=== PATIENT | female | born 1940 | race African-American/Black ===

== ENCOUNTER → 2016-10-18 19:39 | Outpatient (CLI) | payer MEDICARE, MEDICAID ==
[2016-06-25 11:03] VITALS: BMI 42.7
[~2016-10-18 19:39] MED LIST: ASPIRIN325 MG PO; BETAPACE 80 MG80 MG PO; CARDIZEM SR60 MG PO; COLACE100 MG PO; DIAMOX250 MG PO; GLUCOTROL 5 MG T5 MG PO; HYDROCODON-ACE1 EAC7 PO; NITROSTAT0.4 MG SL; PREDNISONE10 MG PO; PRINIVIL20 MG PO; PROVENTIL/2.5 MG/3 M INH; PULMICORT0.5 MG/21 UPD; SINGULAIR10 MG PO; SPIRIVA18 MCG INH; VALIUM5 MG PO
[2016-10-18 20:33] LABS: AMYLASE - SERUM 82 U/L (25-115); LIPASE 211 U/L (73-393)
== END | disposition home or self-care (01) ==
LOC: D.LABREF 19:39
PROVIDERS: Family Medicine
DX: R10.12 Left upper quadrant pain (principal)

== ENCOUNTER 2016-12-01 15:13 | Inpatient (IN) | payer MEDICARE, MEDICAID ==
[~2016-12-01] VITALS: Ht 167.6 cm; Wt 104.6 kg
--- NOTE | ~2016-12-01 | CN ---
PATIENT NAME:EN HELM MEDICAL RECORD: [id number] : 38 LOCATION:D.M2 D.2133 ADMIT DATE: 12/01/16 ACCOUNT: [id number] CONSULTING PHYSICIAN: YARELY NEW MD REFERRING PHYSICIAN: BERNARDINO MARTINEZ DO DATE OF CONSULTATION: 12/06/2016 Consult is from Bernardino Martinez. Consult is to ENT. REASON FOR THE CONSULTATION: Neck mass. HISTORY OF PRESENT ILLNESS: Mrs. Helm was admitted to the hospital with COPD exacerbation, atrial fibrillation, dehydration, and she was found on workup to have a neck mass that is what I was called here about. She complains of some difficulty swallowing. Sometimes when I was in the room, the nurse had her take some pills and she was able to swallow them, but had to take an extra sip of water to swallow. She does not complain of any dyspnea or shortness of breath. She does have a nasal oxygen on. She really does not have any complaints related to the mass in her neck, it seems like it was more incidentally found. She does not have any pain, limitation in movement or foreign body sensation in her throat, anything like that. Her past medical history, I mostly got off of the chart, H and P and pulmonary note. PHYSICAL EXAMINATION: GENERAL: On physical exam, she was asleep when I got there, but the nurse had woken her up to take her medicines. She was awake. She was alert. She seems to be just a fair historian, would not go into much detail about things, but seemed to answer pretty clearly, seemed oriented and certainly did not have any problem with her voice. She did not have any stridor, not in any distress. She was wearing nasal oxygen. HEENT: Her eyes, sclerae, and conjunctivae are normal. Extraocular movements are intact. No ptosis. The nose has no mass, polyps or drainage. Oral cavity and oropharynx: She has a tongue, which is in the midline. Pharynx looks normal. She does have a large tongue. Hard to examine the lower oropharynx. NECK: She has got a right-sided neck mass. It is medial to the sternocleidomastoid. It is mid-neck and lower. It does raise when she swallows, that is certainly consistent with a right-sided thyroid mass. It is nontender. I cannot palpate any other masses or adenopathy. Palpation and movement of that certainly does not affect her. She can still swallow and it raises up, moved her trachea and larynx [id number]. It does not really seem to give her any problems airway del valle or discomfort. IMAGING STUDIES: I looked at her CT and she does have a right-sided neck mass. It is displacing the airway laterally to the left side and then displacing the carotid sheath laterally to the right side and seems like it is attached to the thyroid. 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 It does not seem to be causing any airway issues for her, although the scan looks like it could possibly. It could be related to some of her dysphagia symptoms; however, she passed a video swallow, but I could see it certainly gives her the feeling that it is a little bit hard to get things down, but she is doing okay with her swallowing right now. I talked to her about that and wanted to examine her nasopharynx And her larynx with a flexible scope. I brought it over and was going to spray her nose and take a look and she refused. I asked her if she CONSULT REPORT [id number] EN HELM wanted me to help and she said that yes, she wanted me to help her, but that is not helping. I went over everything with her and told her we really need to take a look and see about her airway. Her vocal cord status, et cetera, even though her voice seems normal, but she just would not let me. It did not seem like she was unable to understand. On a significant amount of time with her, tried to talk her about the fact that it would not to be too uncomfortable, but she would not even let me spray her nose or even think about looking in there at all. PLAN: It is going to be difficult to decide what to do. I think she does need to needle biopsy this. That can be done by radiology certainly. Normally, I can do that in the office, but not here in the hospital, but that can be done. She does seem to be swallowing okay for now. She is on oxygen, so I think her COPD and pulmonary disease is an issue. I am not sure what further I can do at this point if she will not let me examine her. TRANSINT:[id number] Voice Confirmation ID: [id number] DOCUMENT ID: [id number] YARELY NEW MD CC: BERNARDINO MARTINEZ DO [id number] DICTATION DATE: 12/06/16 1133 NUCLEAR WEAPONS MECHANICAL SPECIALIST: 12/06/16 1528 ADM IN [place] [id number] [place] [id number]
[2016-12-01 15:52] LABS: BASOPHILS 0.3 % (0.0-2.0); EOSINOPHILS 1.2 % (0-7); HEMATOCRIT 35.6 % (36.0-48.0); HEMOGLOBIN 10.8 g/dL (12-16); IMMATURE GRANULOCYTES 0.1 % (0-5); LYMPHOCYTES 18.6 % (15-50); MCH 24.1 pg (26.0-34.0); MCHC 30.3 g/dL (31.0-37.0); MCV 79.5 fL (80.0-100.0); MONOCYTES 9.8 % (2-11); RBC 4.48 10x6/uL (4.00-5.40); RDW 16.9 % (11.5-14.5); WBC 6.7 10x3/uL (4.8-10.8)
[2016-12-01 16:20] LABS: PLATELET COUNT 165 10x3/uL (130-400)
[2016-12-01 16:32] LABS: ALBUMIN 3.7 g/dL (3.4-5.0); ANION GAP 8.2 mmol/L (8-16); BILIRUBIN - TOTAL 0.5 mg/dL (0.2-1.3); CARBON DIOXIDE 36.5 mmol/L (21.0-32.0); CREATININE - SERUM 0.8 mg/dL (0.6-1.3); POTASSIUM - SERUM 4.7 mmol/L (3.5-5.1); PROTEIN - SERUM 7.1 g/dL (6.4-8.2)
[2016-12-01 16:44] LABS: CKMB 0.9 U/L (0.0-3.6); CREATINE KINASE 54 UL (21-215)
[2016-12-01] MEDS ORDERED: HYDROCODON-ACE1 EAC7 PO (17:15)
[2016-12-01 18:06] VITALS: BP 140/105
[2016-12-01 18:36] VITALS: BP 140/105; BMI 38.5
[2016-12-01 20:00] VITALS: BP 139/91
[2016-12-01 21:50] LABS: CREATINE KINASE 67 UL (21-215); TROPONIN-I 0.034 ng/mL (0.000-0.060)
[2016-12-02] VITALS: BP 146/104
[2016-12-02 04:00] VITALS: BP 132/100
[2016-12-02 04:11] LABS: BASOPHILS 0.1 % (0.0-2.0); EOSINOPHILS 1.8 % (0-7); HEMATOCRIT 35.6 % (36.0-48.0); HEMOGLOBIN 10.5 g/dL (12-16); IMMATURE GRANULOCYTES 0.1 % (0-5); LYMPHOCYTES 17.9 % (15-50); MCH 23.9 pg (26.0-34.0); MCHC 29.5 g/dL (31.0-37.0); MCV 80.9 fL (80.0-100.0); MEAN PLATELET VOLUME 11.4 fL (7.4-10.4); MONOCYTES 13.4 % (2-11); NEUTROPHILS 66.7 % (40-80); PLATELET COUNT 182 10x3/uL (130-400); WBC 6.8 10x3/uL (4.8-10.8)
[2016-12-02 05:01] LABS: ALBUMIN 2.9 g/dL (3.4-5.0); ALKALINE PHOSPHATASE 43 U/L (46-116); ALT (SGPT) 16 U/L (10-68); BILIRUBIN - TOTAL 0.41 mg/dL (0.2-1.3); CALC OSMOLALITY 287 mosm/kg (275-300); CALCIUM 7.2 mg/dL (8.5-10.1); CARBON DIOXIDE 31.8 mmol/L (21.0-32.0); CHLORIDE - SERUM 108 mmol/L (98-107); CKMB 0.8 U/L (0.0-3.6); CREATINE KINASE 44 UL (21-215); CREATININE - SERUM 0.8 mg/dL (0.6-1.3); GLUCOSE 94 mg/dL (74-106); MAGNESIUM - SERUM 1.5 mg/dL (1.8-2.4); PHOSPHOROUS 3.9 mg/dL (2.5-4.9); PRO BNP 4361 pg/mL (0-450); PROTEIN - SERUM 6.2 g/dL (6.4-8.2); SODIUM 145 mmol/L (136-145); TROPONIN-I 0.044 ng/mL (0.000-0.060); UREA NITROGEN 11 mg/dL (7-18); eGFR NON AFRICAN AMERICAN 74 mL/min (90-120)
[2016-12-02 07:25] VITALS: BP 162/90
[2016-12-02 12:54] VITALS: BP 159/111
[2016-12-02 14:03] VITALS: Ht 167.6 cm; Wt 104.6 kg
[2016-12-02 16:19] VITALS: BP 140/89
[2016-12-02 20:00] VITALS: BP 158/110
[2016-12-03 02:00] VITALS: BP 147/96
[2016-12-03 07:31] VITALS: BP 133/91
[2016-12-03 07:54] LABS: MAGNESIUM - SERUM 1.8 mg/dL (1.8-2.4); PHOSPHOROUS 4.6 mg/dL (2.5-4.9)
[2016-12-03 08:07] LABS: ALBUMIN 3.4 g/dL (3.4-5.0); ANION GAP 7.2 mmol/L (8-16); BILIRUBIN - TOTAL 0.56 mg/dL (0.2-1.3); CALCIUM 8.6 mg/dL (8.5-10.1); CARBON DIOXIDE 36.8 mmol/L (21.0-32.0); CREATININE - SERUM 0.9 mg/dL (0.6-1.3); PROTEIN - SERUM 6.8 g/dL (6.4-8.2)
[2016-12-03 08:27] LABS: BASOPHILS 0.2 % (0.0-2.0); EOSINOPHILS 0 % (0-7); HEMATOCRIT 34.8 % (36.0-48.0); HEMOGLOBIN 10.1 g/dL (12-16); IMMATURE GRANULOCYTES 0.3 % (0-5); LYMPHOCYTES 13.3 % (15-50); MCH 23.9 pg (26.0-34.0); MCV 82.3 fL (80.0-100.0); MEAN PLATELET VOLUME 11.8 fL (7.4-10.4); MONOCYTES 7.1 % (2-11); NEUTROPHILS 79.1 % (40-80); PLATELET COUNT 170 10x3/uL (130-400); RBC 4.23 10x6/uL (4.00-5.40); WBC 6.5 10x3/uL (4.8-10.8)
[2016-12-03 12:52] VITALS: BP 145/87
[2016-12-03 16:12] VITALS: BP 113/74
[2016-12-03 20:23] VITALS: BP 124/75
[2016-12-04 00:07] VITALS: BP 127/82
[2016-12-04 04:26] VITALS: BP 138/91
[2016-12-04 04:59] LABS: BASOPHILS 0.3 % (0-2); EOSINOPHILS 0.1 % (0-7); HEMATOCRIT 35.6 % (36.0-48.0); HEMOGLOBIN 10.4 g/dL (12-16); IMMATURE GRANULOCYTES 0.1 % (0-5); LYMPHOCYTES 11.7 % (15-50); MCHC 29.2 g/dL (31.0-37.0); MCV 82.2 fL (80.0-100.0); MEAN PLATELET VOLUME 11.4 fL (7.4-10.4); MONOCYTES 13.5 % (2-11); NEUTROPHILS 74.3 % (40-80); PLATELET COUNT 157 10x3/uL (130-400); RBC 4.33 10x6/uL (4.00-5.40); RDW 16.8 % (11.5-14.5); WBC 7.5 10x3/uL (4.8-10.8)
[2016-12-04 05:20] LABS: ALBUMIN 3.2 g/dL (3.4-5.0); ANION GAP 8.4 mmol/L (8-16); BILIRUBIN - TOTAL 0.59 mg/dL (0.2-1.3); CARBON DIOXIDE 34.7 mmol/L (21.0-32.0); CREATININE - SERUM 1.1 mg/dL (0.6-1.3); MAGNESIUM - SERUM 1.7 mg/dL (1.8-2.4); PHOSPHOROUS 4.1 mg/dL (2.5-4.9); POTASSIUM - SERUM 5.1 mmol/L (3.5-5.1); PROTEIN - SERUM 6.7 g/dL (6.4-8.2)
[2016-12-04 08:12] VITALS: BP 144/93
[2016-12-04 12:46] VITALS: BP 153/106
[2016-12-04 15:46] VITALS: BP 144/102
[2016-12-04 20:07] VITALS: BP 131/83
[2016-12-05] VITALS (7 sets, daily range): BP systolic 126–150; BP diastolic 76–105
[2016-12-05 04:35] LABS: BASOPHILS 0.3 % (0-2); EOSINOPHILS 0 % (0-7); HEMATOCRIT 36.6 % (36.0-48.0); HEMOGLOBIN 10.7 g/dL (12-16); IMMATURE GRANULOCYTES 0.3 % (0-5); LYMPHOCYTES 14.3 % (15-50); MCH 24.3 pg (26.0-34.0); MCHC 29.2 g/dL (31.0-37.0); MEAN PLATELET VOLUME 11.8 fL (7.4-10.4); MONOCYTES 15.9 % (2-11); NEUTROPHILS 69.2 % (40-80); PLATELET COUNT 163 10x3/uL (130-400); RBC 4.41 10x6/uL (4.00-5.40); RDW 16.7 % (11.5-14.5); WBC 6.7 10x3/uL (4.8-10.8)
[2016-12-05 04:46] LABS: ALBUMIN 3.3 g/dL (3.4-5.0); ANION GAP 6.3 mmol/L (8-16); BILIRUBIN - TOTAL 0.5 mg/dL (0.2-1.3); CALCIUM 8.8 mg/dL (8.5-10.1); CARBON DIOXIDE 37.6 mmol/L (21.0-32.0); CREATININE - SERUM 1.1 mg/dL (0.6-1.3); MAGNESIUM - SERUM 1.8 mg/dL (1.8-2.4); PHOSPHOROUS 4.3 mg/dL (2.5-4.9); POTASSIUM - SERUM 4.9 mmol/L (3.5-5.1); PROTEIN - SERUM 6.9 g/dL (6.4-8.2)
[2016-12-06 03:41] VITALS: BP 153/116
[2016-12-06 05:01] LABS: BASOPHILS 0.1 % (0-2); EOSINOPHILS 0.1 % (0-7); HEMATOCRIT 37.6 % (36.0-48.0); HEMOGLOBIN 10.9 g/dL (12-16); IMMATURE GRANULOCYTES 0.1 % (0-5); LYMPHOCYTES 14.6 % (15-50); MCV 82.6 fL (80.0-100.0); MEAN PLATELET VOLUME 12.5 fL (7.4-10.4); NEUTROPHILS 70.1 % (40-80); PLATELET COUNT 170 10x3/uL (130-400); RBC 4.55 10x6/uL (4.00-5.40); RDW 16.4 % (11.5-14.5); WBC 6.8 10x3/uL (4.8-10.8)
[2016-12-06 05:18] VITALS: BP 158/100
[2016-12-06 05:20] LABS: ALBUMIN 3.2 g/dL (3.4-5.0); ANION GAP 5.9 mmol/L (8-16); BILIRUBIN - TOTAL 0.68 mg/dL (0.2-1.3); CARBON DIOXIDE 39.4 mmol/L (21.0-32.0); CREATININE - SERUM 0.9 mg/dL (0.6-1.3); POTASSIUM - SERUM 4.3 mmol/L (3.5-5.1); PROTEIN - SERUM 6.9 g/dL (6.4-8.2)
[2016-12-06 07:44] VITALS: BP 154/95
[2016-12-06 12:19] VITALS: BP 166/106
[2016-12-06 15:51] VITALS: BP 165/116
[2016-12-06 19:49] LABS: ALBUMIN 3.2 g/dL (3.4-5.0); ANION GAP 2.2 mmol/L (8-16); BILIRUBIN - TOTAL 0.63 mg/dL (0.2-1.3); CALCIUM 8.7 mg/dL (8.5-10.1); CREATININE - SERUM 0.9 mg/dL (0.6-1.3); MAGNESIUM - SERUM 1.5 mg/dL (1.8-2.4); PROTEIN - SERUM 6.9 g/dL (6.4-8.2); T4 THYROXINE 5.8 ug/dL (4.7-13.3); THYROID STIMULATING HORMONE 0.38 uIU/mL (0.36-3.74)
[2016-12-06 19:56] LABS: CARBON DIOXIDE 46.8 mmol/L (21.0-32.0)
[2016-12-06 23:50] VITALS: BP 158/109
[2016-12-07] VITALS (12 sets, daily range): BP systolic 124–177; BP diastolic 78–118
[2016-12-07 05:34] LABS: BASOPHILS 0.2 % (0-2); EOSINOPHILS 0 % (0-7); HEMATOCRIT 37.8 % (36.0-48.0); LYMPHOCYTES 15.1 % (15-50); MCH 24.2 pg (26.0-34.0); MCHC 29.1 g/dL (31.0-37.0); MCV 83.1 fL (80.0-100.0); MONOCYTES 15.1 % (2-11); NEUTROPHILS 69.6 % (40-80); PLATELET COUNT 151 10x3/uL (130-400); RBC 4.55 10x6/uL (4.00-5.40); RDW 16.2 % (11.5-14.5); WBC 6.5 10x3/uL (4.8-10.8)
[2016-12-07 06:11] LABS: BILIRUBIN - TOTAL 0.7 mg/dL (0.2-1.3); CALCIUM 8.7 mg/dL (8.5-10.1); CREATININE - SERUM 0.8 mg/dL (0.6-1.3); POTASSIUM - SERUM 3.9 mmol/L (3.5-5.1); PROTEIN - SERUM 6.5 g/dL (6.4-8.2)
[2016-12-07 06:21] LABS: ANION GAP 8.9 mmol/L (8-16)
[2016-12-08] VITALS (24 sets, daily range): BP systolic 99–156; BP diastolic 72–109
[2016-12-08 04:15] LABS: BASOPHILS 0.1 % (0-2); EOSINOPHILS 0.4 % (0-7); HEMATOCRIT 38.8 % (36.0-48.0); HEMOGLOBIN 11.8 g/dL (12-16); IMMATURE GRANULOCYTES 0.3 % (0-5); LYMPHOCYTES 14.1 % (15-50); MCH 24.8 pg (26.0-34.0); MCHC 30.4 g/dL (31.0-37.0); MCV 81.7 fL (80.0-100.0); MONOCYTES 12.9 % (2-11); NEUTROPHILS 72.2 % (40-80); PLATELET COUNT 156 10x3/uL (130-400); RBC 4.75 10x6/uL (4.00-5.40); RDW 15.7 % (11.5-14.5); WBC 6.7 10x3/uL (4.8-10.8)
[2016-12-08 04:27] LABS: APTT 29.5 SECONDS (22.8-39.4); INR 1.24 (0.85-1.17); PROTIME 15.5 SECONDS (11.6-15.0)
[2016-12-08 04:54] LABS: ALBUMIN 2.9 g/dL (3.4-5.0); ALKALINE PHOSPHATASE 41 U/L (46-116); ALT (SGPT) 15 U/L (10-68); BILIRUBIN - TOTAL 1.28 mg/dL (0.2-1.3); CALC OSMOLALITY 281 mosm/kg (275-300); CHLORIDE - SERUM 98 mmol/L (98-107); CKMB 0.3 U/L (0.0-3.6); CREATININE - SERUM 0.9 mg/dL (0.6-1.3); GLUCOSE 100 mg/dL (74-106); PRO BNP 7257 pg/mL (0-450); PROTEIN - SERUM 6.3 g/dL (6.4-8.2); SODIUM 141 mmol/L (136-145); T4 THYROXIN - FREE 1.32 ng/dL (0.76-1.46); THYROID STIMULATING HORMONE 1.32 uIU/mL (0.36-3.74); TROPONIN-I 0.035 ng/mL (0.000-0.060); UREA NITROGEN 16 mg/dL (7-18); eGFR NON AFRICAN AMERICAN 64 mL/min (90-120)
[2016-12-08 04:55] LABS: POTASSIUM - SERUM 2.8 mmol/L (3.5-5.1)
--- NOTE | 2016-12-08 12:49 | EC ---
PATIENT:EN HELM DATE OF SERVICE: 12/01/16 SEX: F MEDICAL RECORD: [id number] DATE OF : 38 LOCATION:[facility] AGE OF PATIENT: 76 ADMISSION DATE: 12/01/16 REFERRING PHYSICIAN: INTERPRETING PHYSICIAN: CHRISTIANE NEGRO M.D. ECHOCARDIOGRAM REPORT ECHO CHARGES 4 ECHO COMPLETE CLINICAL DIAGNOSIS: CARDIOMEGALY/SOB ECHOCARDIOGRAPHIC MEASUREMENTS (adult normal given) AC root (d.<3.7cm) 3.1 LV Septum d (<1.2 cm> 1.5 Valve Excursion 1.6 LV Septum (systole) 2.0 Left Atria (s.<4.0cm> 5.5 LVPW d(<1.2cm) 1.1 RV (d.<2.3cm) 5.3 LVPW (sytole) 1.2 LV diastole(<5.6CM) 5.3 MV E-F(>70mm/sec) LV systole 4.0 LVOT Diameter 1.7 MV exc.(>10mm) 1.3 Est.ejection fraction (50-75%) Pericardial Effusion Y DOPPLER: LVIT A 113 E 58.0 LA RVSP 51 LVOT 141 AOP1/2T Asc. Ao 238 RVOT 111 RA PA 172 AV Gradient Peak 22.60 AV Mean 12.22 AV Area 1.5 MV Gradient Peak 16.70 MV Mean 7.42 MV Area COMMENTS: Watch Crystal Cutter: Mikie SCHMITZ Parquetry Floor Layer:2 Dr. Negro TAPE# PACS DATE OF SERVICE: 12/02/2016 INDICATION: Cardiomegaly, dyspnea. DESCRIPTION: Left ventricle demonstrates left ventricular hypertrophy. No wall motion abnormalities are noted. Estimated ejection fraction is lower limits of normal around 50%. Mitral valve is structurally normal. There is moderate regurgitation seen. Left atrium is moderately dilated. The aortic valve is trileaflet. Leaflets are thickened. Peak gradient across the valve is 22 mmHg. There is mild insufficiency noted as well. Right ventricle is moderately ECHOCARDIOGRAM REPORT [id number] EN HELM dilated. Tricuspid valve is structurally normal. There is mild regurgitation seen. Right ventricular systolic pressure is elevated at 51 mmHg. Right atrium is mildly dilated. There is physiologic pericardial effusion noted. IMPRESSION: 1. Left ventricular hypertrophy with preserved ejection fraction 50%. 2. Moderate mitral regurgitation. 3. Mild aortic stenosis with mild insufficiency. 4. Mild tricuspid regurgitation with elevated pulmonary pressures. TRANSINT:[id number] Voice Confirmation ID: [id number] DOCUMENT ID: [id number] CHRISTIANE NEGRO M.D. at 1249 CC: [id number] DICTATION DATE: 12/03/16612 WET PRESS TENDER: 12/03/16 0640 ADM IN [place] [id number] [place] [id number]
[2016-12-09] VITALS (26 sets, daily range): BP systolic 99–134; BP diastolic 71–99
[2016-12-09 03:44] LABS: BASOPHILS 0 % (0-2); EOSINOPHILS 0.8 % (0-7); HEMATOCRIT 37.3 % (36.0-48.0); HEMOGLOBIN 11.7 g/dL (12-16); IMMATURE GRANULOCYTES 0.5 % (0-5); LYMPHOCYTES 16.5 % (15-50); MCH 24.1 pg (26.0-34.0); MCHC 31.4 g/dL (31.0-37.0); MONOCYTES 11.7 % (2-11); NEUTROPHILS 70.5 % (40-80); PLATELET COUNT 138 10x3/uL (130-400); RBC 4.86 10x6/uL (4.00-5.40); RDW 16.4 % (11.5-14.5); WBC 7.8 10x3/uL (4.8-10.8)
[2016-12-09 03:46] LABS: MCV 76.7 fL (80.0-100.0)
[2016-12-09 04:03] LABS: ALBUMIN 2.9 g/dL (3.4-5.0); ANION GAP 9.6 mmol/L (8-16); BILIRUBIN - TOTAL 1.01 mg/dL (0.2-1.3); CALCIUM 8.8 mg/dL (8.5-10.1); CARBON DIOXIDE 32.8 mmol/L (21.0-32.0); CREATININE - SERUM 1.1 mg/dL (0.6-1.3); POTASSIUM - SERUM 3.4 mmol/L (3.5-5.1); PROTEIN - SERUM 5.9 g/dL (6.4-8.2)
--- NOTE | 2016-12-09 13:27 | EEG ---
PATIENT:NE HELM DATE OF SERVICE: 12/01/16 MEDICAL RECORD: [id number] DATE OF : 38 LOCATION:D.231 D.ICU ADMISSION DATE: 12/01/16 REFERRING PHYSICIAN: INTERPRETING PHYSICIAN: ELVIRA ACOSTA MD DATE OF SERVICE: 12/07/2016 Electroencephalographic Report Referred as an inpatient by myself, currently in room 2133. ELECTROENCEPHALOGRAM NUMBER: [id number]. DATE OF EXAMINATION: 12/07/2016 at 12:30 p.m. TECHNICAL DATA: This electroencephalographic recording consists of approximately 20 minutes of data collection utilizing the international 10/20 system of electrode placement and both referential and non-referential montages. Sixteen channels of electrocerebral recording are accompanied by a 17th channel dedicated to the electrocardiographic rhythm and 2 channels of electromyographic recording. Recording is performed in the lethargic state utilizing activation by photic stimulation. ELECTROENCEPHALOGRAPHIC DATA: The entirety of the recorded electrocerebral activity is performed in the lethargic state. Rapid eye movements are rarely seen. The posterior dominant background consists of a symmetric, semi-rhythmic, waxing and waning 4-5 Hz theta activity, which is suppressed by eye opening. Electromyographic artifact is diminished. Also seen continuously throughout the recording is an irregular generalized and symmetric mixture of slow wave activity ranging from 2-4 Hz. No focal slowing is identified. No epileptiform discharges are seen. Photic stimulation induces no change in the recorded electrocerebral activity. INTERPRETATION: 1. Intermittent slow, generalized (lethargy). 2. Background slow. This electroencephalographic recording is indicative of a moderate diffuse encephalopathy. TRANSINT:[id number] Voice Confirmation ID: [id number] DOCUMENT ID: [id number] ELVIRA ACOSTA MD at 1327 CC: [id number] DICTATION DATE: 12/08/16 0650 BAND MAKER: 12/08/16 1012 ADM IN [place] [id number] [place] [address]
[2016-12-10] VITALS (25 sets, daily range): BP systolic 94–144; BP diastolic 68–99
[2016-12-10 04:09] LABS: BASOPHILS 0.1 % (0-2); EOSINOPHILS 1.6 % (0-7); HEMATOCRIT 35.7 % (36.0-48.0); HEMOGLOBIN 11.5 g/dL (12-16); IMMATURE GRANULOCYTES 0.9 % (0-5); LYMPHOCYTES 19.6 % (15-50); MCH 24.3 pg (26.0-34.0); MCHC 32.2 g/dL (31.0-37.0); MCV 75.5 fL (80.0-100.0); MONOCYTES 13.2 % (2-11); NEUTROPHILS 64.6 % (40-80); PLATELET COUNT 135 10x3/uL (130-400); RBC 4.73 10x6/uL (4.00-5.40); RDW 16.7 % (11.5-14.5); WBC 6.8 10x3/uL (4.8-10.8)
[2016-12-10 04:27] LABS: ALBUMIN 2.6 g/dL (3.4-5.0); ANION GAP 6.3 mmol/L (8-16); BILIRUBIN - TOTAL 0.71 mg/dL (0.2-1.3); CALCIUM 8.4 mg/dL (8.5-10.1); CARBON DIOXIDE 33.5 mmol/L (21.0-32.0); CREATININE - SERUM 1.1 mg/dL (0.6-1.3); MAGNESIUM - SERUM 1.4 mg/dL (1.8-2.4); PROTEIN - SERUM 5.8 g/dL (6.4-8.2)
[2016-12-10 04:35] LABS: POTASSIUM - SERUM 2.8 mmol/L (3.5-5.1)
[2016-12-10 22:34] LABS: MAGNESIUM - SERUM 1.9 mg/dL (1.8-2.4); POTASSIUM - SERUM 3.3 mmol/L (3.5-5.1)
[2016-12-11] VITALS (26 sets, daily range): BP systolic 85–132; BP diastolic 59–99
[2016-12-11 05:02] LABS: BASOPHILS 0.1 % (0-2); EOSINOPHILS 1.6 % (0-7); HEMATOCRIT 36.7 % (36.0-48.0); HEMOGLOBIN 11.8 g/dL (12-16); IMMATURE GRANULOCYTES 0.9 % (0-5); LYMPHOCYTES 14.4 % (15-50); MCH 24.5 pg (26.0-34.0); MCHC 32.2 g/dL (31.0-37.0); MCV 76.1 fL (80.0-100.0); MONOCYTES 14.4 % (2-11); NEUTROPHILS 68.6 % (40-80); PLATELET COUNT 131 10x3/uL (130-400); RBC 4.82 10x6/uL (4.00-5.40); RDW 17.3 % (11.5-14.5)
[2016-12-11 05:08] LABS: WBC 8.7 10x3/uL (4.8-10.8)
[2016-12-11 05:35] LABS: ALBUMIN 2.5 g/dL (3.4-5.0); ANION GAP 11.1 mmol/L (8-16); BILIRUBIN - TOTAL 0.6 mg/dL (0.2-1.3); CALCIUM 8.5 mg/dL (8.5-10.1); CARBON DIOXIDE 28.6 mmol/L (21.0-32.0); MAGNESIUM - SERUM 1.9 mg/dL (1.8-2.4); POTASSIUM - SERUM 3.7 mmol/L (3.5-5.1); PROTEIN - SERUM 5.8 g/dL (6.4-8.2)
[2016-12-11 05:43] LABS: PHOSPHOROUS 2.6 mg/dL (2.5-4.9)
[2016-12-12] VITALS (27 sets, daily range): BP systolic 81–137; BP diastolic 55–96
[2016-12-12 05:28] LABS: ALBUMIN 2.4 g/dL (3.4-5.0); ANION GAP 9.5 mmol/L (8-16); BILIRUBIN - TOTAL 0.5 mg/dL (0.2-1.3); CALCIUM 8.4 mg/dL (8.5-10.1); CARBON DIOXIDE 29.9 mmol/L (21.0-32.0); CREATININE - SERUM 0.8 mg/dL (0.6-1.3); POTASSIUM - SERUM 3.4 mmol/L (3.5-5.1); PROTEIN - SERUM 5.7 g/dL (6.4-8.2)
[2016-12-12 06:19] LABS: BASOPHILS 0.2 % (0-2); HEMATOCRIT 34.9 % (36.0-48.0); HEMOGLOBIN 11.2 g/dL (12-16); IMMATURE GRANULOCYTES 0.8 % (0-5); LYMPHOCYTES 14.3 % (15-50); MCH 24.3 pg (26.0-34.0); MCHC 32.1 g/dL (31.0-37.0); MCV 75.7 fL (80.0-100.0); NEUTROPHILS 66.7 % (40-80); PLATELET COUNT 130 10x3/uL (130-400); RBC 4.61 10x6/uL (4.00-5.40); RDW 17.4 % (11.5-14.5)
[2016-12-13] VITALS (25 sets, daily range): BP systolic 86–129; BP diastolic 55–88
[2016-12-13 03:53] LABS: BASOPHILS 0.2 % (0-2); EOSINOPHILS 1.9 % (0-7); HEMATOCRIT 35.8 % (36.0-48.0); HEMOGLOBIN 11.3 g/dL (12-16); IMMATURE GRANULOCYTES 0.7 % (0-5); LYMPHOCYTES 20.3 % (15-50); MCH 24.1 pg (26.0-34.0); MCHC 31.6 g/dL (31.0-37.0); MCV 76.5 fL (80.0-100.0); MONOCYTES 18.7 % (2-11); NEUTROPHILS 58.2 % (40-80); RBC 4.68 10x6/uL (4.00-5.40); RDW 17.5 % (11.5-14.5); WBC 8.6 10x3/uL (4.8-10.8)
[2016-12-13 03:56] LABS: PLATELET COUNT 161 10x3/uL (130-400)
[2016-12-13 04:13] LABS: ALBUMIN 2.6 g/dL (3.4-5.0); ALKALINE PHOSPHATASE 41 U/L (46-116); ALT (SGPT) 18 U/L (10-68); BILIRUBIN - TOTAL 0.79 mg/dL (0.2-1.3); CALC OSMOLALITY 285 mosm/kg (275-300); CALCIUM 8.3 mg/dL (8.5-10.1); CARBON DIOXIDE 31.2 mmol/L (21.0-32.0); CHLORIDE - SERUM 105 mmol/L (98-107); CREATININE - SERUM 0.7 mg/dL (0.6-1.3); GLUCOSE 95 mg/dL (74-106); POTASSIUM - SERUM 3.9 mmol/L (3.5-5.1); PROTEIN - SERUM 5.7 g/dL (6.4-8.2); SODIUM 143 mmol/L (136-145); UREA NITROGEN 16 mg/dL (7-18); eGFR NON AFRICAN AMERICAN 86 mL/min (90-120)
[2016-12-14] VITALS (23 sets, daily range): BP systolic 80–127; BP diastolic 7–98
[2016-12-14 04:24] LABS: BASOPHILS 0.2 % (0-2); EOSINOPHILS 2.4 % (0-7); HEMATOCRIT 37.5 % (36.0-48.0); HEMOGLOBIN 11.4 g/dL (12-16); IMMATURE GRANULOCYTES 0.4 % (0-5); LYMPHOCYTES 18.7 % (15-50); MCH 24.2 pg (26.0-34.0); MCHC 30.4 g/dL (31.0-37.0); MEAN PLATELET VOLUME 10.9 fL (7.4-10.4); MONOCYTES 15.4 % (2-11); NEUTROPHILS 62.9 % (40-80); RBC 4.72 10x6/uL (4.00-5.40); RDW 17.5 % (11.5-14.5); WBC 9.1 10x3/uL (4.8-10.8)
[2016-12-14 04:30] LABS: MCV 79.4 fL (80.0-100.0); PLATELET COUNT 203 10x3/uL (130-400)
[2016-12-14 04:45] LABS: CALC OSMOLALITY 289 mosm/kg (275-300); CALCIUM 8.8 mg/dL (8.5-10.1); CARBON DIOXIDE 33.1 mmol/L (21.0-32.0); CHLORIDE - SERUM 107 mmol/L (98-107); CREATININE - SERUM 0.7 mg/dL (0.6-1.3); GLUCOSE 100 mg/dL (74-106); POTASSIUM - SERUM 3.8 mmol/L (3.5-5.1); SODIUM 145 mmol/L (136-145); UREA NITROGEN 15 mg/dL (7-18); eGFR NON AFRICAN AMERICAN 86 mL/min (90-120)
[2016-12-15] VITALS (23 sets, daily range): BP systolic 91–140; BP diastolic 69–100
[2016-12-15 04:22] LABS: BASOPHILS 0.1 % (0-2); EOSINOPHILS 0 % (0-7); HEMATOCRIT 36.7 % (36.0-48.0); HEMOGLOBIN 11.2 g/dL (12-16); IMMATURE GRANULOCYTES 0.3 % (0-5); LYMPHOCYTES 12.7 % (15-50); MCH 24.2 pg (26.0-34.0); MCHC 30.5 g/dL (31.0-37.0); MCV 79.3 fL (80.0-100.0); MEAN PLATELET VOLUME 11.6 fL (7.4-10.4); MONOCYTES 10.4 % (2-11); NEUTROPHILS 76.5 % (40-80); PLATELET COUNT 212 10x3/uL (130-400); RBC 4.63 10x6/uL (4.00-5.40); RDW 17.3 % (11.5-14.5)
[2016-12-15 04:25] LABS: WBC 6.8 10x3/uL (4.8-10.8)
[2016-12-15 04:27] LABS: ANION GAP 3.5 mmol/L (8-16); CALCIUM 8.9 mg/dL (8.5-10.1); CARBON DIOXIDE 37.5 mmol/L (21.0-32.0); CREATININE - SERUM 0.8 mg/dL (0.6-1.3); MAGNESIUM - SERUM 1.7 mg/dL (1.8-2.4)
[2016-12-15 04:28] LABS: INR 1.07 (0.85-1.17); PROTIME 13.8 SECONDS (11.6-15.0)
[2016-12-15 04:29] LABS: APTT 25.6 SECONDS (22.8-39.4)
[2016-12-16] VITALS (25 sets, daily range): BP systolic 116–158; BP diastolic 63–118
[2016-12-16 03:41] LABS: BASOPHILS 0.2 % (0-2); EOSINOPHILS 0.9 % (0-7); HEMATOCRIT 37.5 % (36.0-48.0); HEMOGLOBIN 11.1 g/dL (12-16); IMMATURE GRANULOCYTES 0.2 % (0-5); LYMPHOCYTES 17.6 % (15-50); MCHC 29.6 g/dL (31.0-37.0); MCV 81.2 fL (80.0-100.0); MEAN PLATELET VOLUME 10.6 fL (7.4-10.4); MONOCYTES 16.9 % (2-11); NEUTROPHILS 64.2 % (40-80); PLATELET COUNT 237 10x3/uL (130-400); RBC 4.62 10x6/uL (4.00-5.40); RDW 17.4 % (11.5-14.5); WBC 8.2 10x3/uL (4.8-10.8)
[2016-12-16 03:56] LABS: CALC OSMOLALITY 295 mosm/kg (275-300); CALCIUM 9.1 mg/dL (8.5-10.1); CARBON DIOXIDE 39.9 mmol/L (21.0-32.0); CHLORIDE - SERUM 109 mmol/L (98-107); CREATININE - SERUM 0.7 mg/dL (0.6-1.3); GLUCOSE 109 mg/dL (74-106); MAGNESIUM - SERUM 1.8 mg/dL (1.8-2.4); POTASSIUM - SERUM 3.7 mmol/L (3.5-5.1); SODIUM 147 mmol/L (136-145); UREA NITROGEN 20 mg/dL (7-18); eGFR NON AFRICAN AMERICAN 86 mL/min (90-120)
[2016-12-17] VITALS (24 sets, daily range): BP systolic 101–188; BP diastolic 64–112
[2016-12-17 03:48] LABS: BASOPHILS 0 % (0-2); EOSINOPHILS 0 % (0-7); HEMATOCRIT 38.2 % (36.0-48.0); HEMOGLOBIN 11.4 g/dL (12-16); IMMATURE GRANULOCYTES 0.3 % (0-5); LYMPHOCYTES 12.4 % (15-50); MCH 24.3 pg (26.0-34.0); MCHC 29.8 g/dL (31.0-37.0); MCV 81.4 fL (80.0-100.0); MEAN PLATELET VOLUME 11.4 fL (7.4-10.4); MONOCYTES 12.5 % (2-11); NEUTROPHILS 74.8 % (40-80); PLATELET COUNT 259 10x3/uL (130-400); RBC 4.69 10x6/uL (4.00-5.40); RDW 17.3 % (11.5-14.5); WBC 8.7 10x3/uL (4.8-10.8)
[2016-12-17 03:59] LABS: CALC OSMOLALITY 300 mosm/kg (275-300); CALCIUM 9.6 mg/dL (8.5-10.1); CHLORIDE - SERUM 106 mmol/L (98-107); CREATININE - SERUM 0.7 mg/dL (0.6-1.3); GLUCOSE 127 mg/dL (74-106); MAGNESIUM - SERUM 1.8 mg/dL (1.8-2.4); POTASSIUM - SERUM 3.8 mmol/L (3.5-5.1); SODIUM 149 mmol/L (136-145); UREA NITROGEN 22 mg/dL (7-18); eGFR NON AFRICAN AMERICAN 86 mL/min (90-120)
[2016-12-17 04:01] LABS: CARBON DIOXIDE 43.1 mmol/L (21.0-32.0)
[2016-12-18] VITALS (24 sets, daily range): BP systolic 122–200; BP diastolic 70–124
[2016-12-18 04:25] LABS: BASOPHILS 0.1 % (0-2); EOSINOPHILS 0 % (0-7); HEMATOCRIT 36.9 % (36.0-48.0); HEMOGLOBIN 11.4 g/dL (12-16); IMMATURE GRANULOCYTES 0.4 % (0-5); LYMPHOCYTES 14.6 % (15-50); MCH 24.8 pg (26.0-34.0); MCHC 30.9 g/dL (31.0-37.0); MCV 80.4 fL (80.0-100.0); MEAN PLATELET VOLUME 11.3 fL (7.4-10.4); NEUTROPHILS 69.9 % (40-80); PLATELET COUNT 259 10x3/uL (130-400); RBC 4.59 10x6/uL (4.00-5.40); RDW 17.5 % (11.5-14.5); WBC 8.5 10x3/uL (4.8-10.8)
[2016-12-18 04:39] LABS: ANION GAP 1.5 mmol/L (8-16); CALCIUM 9.2 mg/dL (8.5-10.1); CREATININE - SERUM 0.8 mg/dL (0.6-1.3); MAGNESIUM - SERUM 1.7 mg/dL (1.8-2.4); POTASSIUM - SERUM 3.4 mmol/L (3.5-5.1)
[2016-12-18 04:40] LABS: CARBON DIOXIDE 43.9 mmol/L (21.0-32.0)
[2016-12-19] VITALS (24 sets, daily range): BP systolic 127–167; BP diastolic 84–126
[2016-12-19 03:43] LABS: BASOPHILS 0 % (0-2); EOSINOPHILS 0 % (0-7); HEMATOCRIT 38.2 % (36.0-48.0); HEMOGLOBIN 11.5 g/dL (12-16); IMMATURE GRANULOCYTES 0.3 % (0-5); LYMPHOCYTES 10.9 % (15-50); MCH 24.3 pg (26.0-34.0); MCHC 30.1 g/dL (31.0-37.0); MCV 80.8 fL (80.0-100.0); MEAN PLATELET VOLUME 10.9 fL (7.4-10.4); MONOCYTES 13.2 % (2-11); NEUTROPHILS 75.6 % (40-80); PLATELET COUNT 254 10x3/uL (130-400); RBC 4.73 10x6/uL (4.00-5.40); RDW 17.6 % (11.5-14.5); WBC 9.4 10x3/uL (4.8-10.8)
[2016-12-19 04:07] LABS: ALBUMIN 3.1 g/dL (3.4-5.0); ANION GAP 0.2 mmol/L (8-16); BILIRUBIN - TOTAL 0.65 mg/dL (0.2-1.3); CALCIUM 9.6 mg/dL (8.5-10.1); CREATININE - SERUM 0.8 mg/dL (0.6-1.3); MAGNESIUM - SERUM 1.8 mg/dL (1.8-2.4); POTASSIUM - SERUM 3.4 mmol/L (3.5-5.1)
[2016-12-19 04:08] LABS: CARBON DIOXIDE 45.2 mmol/L (21.0-32.0)
--- NOTE | 2016-12-19 21:39 | CN ---
PATIENT NAME:EN HELM MEDICAL RECORD: [id number] : 38 LOCATION:[facility] ADMIT DATE: 12/01/16 ACCOUNT: [id number] CONSULTING PHYSICIAN: IAN RODRIGUEZ MD REFERRING PHYSICIAN: SAMIR MARTINEZ DO DATE OF CONSULTATION: 12/18/2016 Surgical Consultation SURGEON: Ian Rodriguez MD. REASON FOR CONSULTATION: Thyroid mass. HISTORY OF PRESENT ILLNESS: This is a 76-year-old woman who has been admitted in the hospital 3 weeks ago. She was admitted for complaints of cough and sputum, pneumonia as well as hypoxia. Appears during her hospitalization, she has been treated for left upper lobe pneumonia, acute exacerbation of COPD, congestive heart failure. The patient was noted to have a thyroid mass after admission that was 6 x 6 x 10 cm. ENT was consulted. The patient refused surgery at that time. A second CT has been performed, which also shows the same mass unchanged in size. There are some calcifications concerning on the imaging concerning for malignancy. An ultrasound-guided thyroid biopsy was performed. Pathology reveals indeterminate biopsy. The patient has had multiple swallow evaluation that show within normal limits. There appears to be no airway or oropharyngeal compromise associated with the mass. The patient again today she is aware of the mass and is refusing surgical intervention. PAST MEDICAL HISTORY: Stroke, neuropathy, diabetes, hypertension, coronary artery disease, asthma and sleep apnea. PAST SURGICAL HISTORY: Right hip incision and drainage. ALLERGIES: PENICILLIN AND PROMETHAZINE. MEDICATIONS: Please see electronic medical record for full list of medications. FAMILY HISTORY: Cardiovascular disease, diabetes, cancer and neurological disorders in her parents, her sister has cardiovascular disease and diabetes and her child has cardiovascular disease. SOCIAL HISTORY: She was never a smoker, drinks no alcohol. REVIEW OF SYSTEMS: A 12-point review of systems, all pertinent positives and negatives as per the HPI. PHYSICAL EXAMINATION: VITAL SIGNS: Heart rate 102, temperature 98.2, blood pressure is 147/92 and saturating 96% on 2 liters nasal cannula. GENERAL APPEARANCE: She has altered mental status. She is awake and alert. EYES: Extraocular muscles are intact. EARS, NOSE AND THROAT: Mucous membranes moist. Normal dentition. NECK: Some mild tenderness. She has a large 6-8 cm firm nonmobile mass in the right neck. No associated lymphadenopathy. CARDIOVASCULAR: Normal sinus rhythm. RESPIRATORY: Decreased breath sounds, mild distress. CONSULT REPORT [id number] EN HELM ABDOMEN: Soft, nontender, and nondistended. NEUROLOGIC: Speech is clear. She has no gross deficits. EXTREMITIES: Neurovascularly intact. Cap refill normal. SKIN: Warm and dry. IMPRESSION: A 76-year-old female with congestive heart failure, chronic obstructive pulmonary disease, pneumonia, respiratory insufficiency and 6 x 6 x10 cm right thyroid mass. PLAN: I spoke with Delia by phone to discuss the patient's treatment options as the patient has previously refused intervention by the ear, nose and throat physician, Dr. Covington. I recommend no further biopsies, patient likely need at minimum a total thyroidectomy. Family would like to discuss with the patient's further options. They feel she does not want surgical intervention and they will abide by her wishes. We will follow the patient if need this. Please reconsult if the family or the patient changed their mind. TRANSINT:[id number] Voice Confirmation ID: [id number] DOCUMENT ID: [id number] IAN RODRIGUEZ MD at 2139 CC: [id number] DICTATION DATE: 12/19/16 0852 IDEA MAN: 12/19/16 1603 ADM IN [place] [id number] [place] [address]
[2016-12-20] VITALS (11 sets, daily range): BP systolic 113–174; BP diastolic 77–118
[2016-12-20 04:42] LABS: BASOPHILS 0 % (0-2); EOSINOPHILS 0 % (0-7); HEMATOCRIT 38.6 % (36.0-48.0); HEMOGLOBIN 11.6 g/dL (12-16); IMMATURE GRANULOCYTES 0.2 % (0-5); MCH 24.4 pg (26.0-34.0); MCHC 30.1 g/dL (31.0-37.0); MCV 81.1 fL (80.0-100.0); MEAN PLATELET VOLUME 11.5 fL (7.4-10.4); MONOCYTES 9.5 % (2-11); NEUTROPHILS 78.3 % (40-80); PLATELET COUNT 251 10x3/uL (130-400); RBC 4.76 10x6/uL (4.00-5.40); RDW 17.9 % (11.5-14.5); WBC 8.6 10x3/uL (4.8-10.8)
[2016-12-20 04:50] LABS: ANION GAP 2.7 mmol/L (8-16); CALCIUM 9.9 mg/dL (8.5-10.1); CREATININE - SERUM 0.8 mg/dL (0.6-1.3); POTASSIUM - SERUM 3.7 mmol/L (3.5-5.1)
[2016-12-21 05:02] LABS: BASOPHILS 0 % (0-2); EOSINOPHILS 0 % (0-7); HEMATOCRIT 38.2 % (36.0-48.0); HEMOGLOBIN 11.6 g/dL (12-16); IMMATURE GRANULOCYTES 0.3 % (0-5); LYMPHOCYTES 9.5 % (15-50); MCH 24.5 pg (26.0-34.0); MCHC 30.4 g/dL (31.0-37.0); MCV 80.8 fL (80.0-100.0); MEAN PLATELET VOLUME 11.2 fL (7.4-10.4); MONOCYTES 8.1 % (2-11); NEUTROPHILS 82.1 % (40-80); PLATELET COUNT 213 10x3/uL (130-400); RBC 4.73 10x6/uL (4.00-5.40); RDW 17.8 % (11.5-14.5)
[2016-12-21 05:06] LABS: WBC 11.8 10x3/uL (4.8-10.8)
[2016-12-21 05:17] LABS: ANION GAP 2.6 mmol/L (8-16); CALCIUM 9.4 mg/dL (8.5-10.1); CREATININE - SERUM 0.9 mg/dL (0.6-1.3); MAGNESIUM - SERUM 1.9 mg/dL (1.8-2.4); PHOSPHOROUS 3.2 mg/dL (2.5-4.9); POTASSIUM - SERUM 3.9 mmol/L (3.5-5.1)
[2016-12-21 05:20] LABS: CARBON DIOXIDE 42.3 mmol/L (21.0-32.0)
[2016-12-21 09:00] VITALS: BP 154/97
[2016-12-21 15:00] VITALS: BP 141/91
[2016-12-21 15:48] VITALS: BP 146/102
[2016-12-21 17:25] VITALS: BP 138/88
[2016-12-22] VITALS: BP 139/109
[2016-12-22 04:00] VITALS: BP 135/77
[2016-12-22 04:54] LABS: BASOPHILS 0 % (0-2); EOSINOPHILS 0.2 % (0-7); HEMATOCRIT 38.2 % (36.0-48.0); HEMOGLOBIN 11.3 g/dL (12-16); IMMATURE GRANULOCYTES 0.3 % (0-5); MCH 24.3 pg (26.0-34.0); MCHC 29.6 g/dL (31.0-37.0); MCV 82.2 fL (80.0-100.0); MONOCYTES 9.3 % (2-11); NEUTROPHILS 75.2 % (40-80); PLATELET COUNT 198 10x3/uL (130-400); RBC 4.65 10x6/uL (4.00-5.40); WBC 8.9 10x3/uL (4.8-10.8)
[2016-12-22 05:17] LABS: CALCIUM 8.8 mg/dL (8.5-10.1); CREATININE - SERUM 0.8 mg/dL (0.6-1.3); POTASSIUM - SERUM 3.9 mmol/L (3.5-5.1)
[2016-12-22 05:26] LABS: CARBON DIOXIDE 42.9 mmol/L (21.0-32.0)
[2016-12-22 09:01] VITALS: BP 165/111
[2016-12-22 12:00] VITALS: BP 121/77
[2016-12-22 17:56] VITALS: BP 155/93
[2016-12-22 19:00] VITALS: BP 150/67
[2016-12-23] VITALS: BP 138/93
[2016-12-23 04:00] VITALS: BP 154/91
[2016-12-23 06:34] LABS: BASOPHILS 0 % (0-2); EOSINOPHILS 0.4 % (0-7); HEMATOCRIT 37.8 % (36.0-48.0); HEMOGLOBIN 11.4 g/dL (12-16); IMMATURE GRANULOCYTES 0.3 % (0-5); LYMPHOCYTES 16.1 % (15-50); MCH 24.5 pg (26.0-34.0); MCHC 30.2 g/dL (31.0-37.0); MCV 81.3 fL (80.0-100.0); NEUTROPHILS 73.2 % (40-80); PLATELET COUNT 167 10x3/uL (130-400); RBC 4.65 10x6/uL (4.00-5.40); RDW 17.5 % (11.5-14.5); WBC 10.7 10x3/uL (4.8-10.8)
[2016-12-23 06:51] LABS: ANION GAP 2.1 mmol/L (8-16); CALCIUM 8.9 mg/dL (8.5-10.1); CREATININE - SERUM 0.8 mg/dL (0.6-1.3); POTASSIUM - SERUM 4.1 mmol/L (3.5-5.1)
[2016-12-23 08:44] VITALS: BP 132/776; BP 145/101
[2016-12-23 12:57] VITALS: BP 128/91
[2016-12-23 17:00] VITALS: BP 138/71
[2016-12-23 20:00] VITALS: BP 149/108
[2016-12-24] VITALS: BP 130/80
[2016-12-24 04:00] VITALS: BP 151/94
[2016-12-24 05:31] LABS: BASOPHILS 0 % (0-2); EOSINOPHILS 0.1 % (0-7); HEMATOCRIT 37.8 % (36.0-48.0); HEMOGLOBIN 11.6 g/dL (12-16); IMMATURE GRANULOCYTES 0.3 % (0-5); MCH 24.6 pg (26.0-34.0); MCHC 30.7 g/dL (31.0-37.0); MCV 80.3 fL (80.0-100.0); MONOCYTES 8.6 % (2-11); PLATELET COUNT 170 10x3/uL (130-400); RBC 4.71 10x6/uL (4.00-5.40); RDW 17.4 % (11.5-14.5); WBC 9.9 10x3/uL (4.8-10.8)
[2016-12-24 05:58] LABS: ANION GAP 0.7 mmol/L (8-16); CALCIUM 8.8 mg/dL (8.5-10.1); CREATININE - SERUM 0.8 mg/dL (0.6-1.3); POTASSIUM - SERUM 3.9 mmol/L (3.5-5.1)
[2016-12-24 06:14] LABS: CARBON DIOXIDE 42.2 mmol/L (21.0-32.0)
[2016-12-24 08:58] VITALS: BP 148/100
[2016-12-24 09:51] VITALS: BP 154/97
[2016-12-24 11:43] VITALS: BP 96/65
[2016-12-24] MEDS ORDERED: CATAPRES TTS-20.2 MG TD (13:18)
[2016-12-24] MEDS ORDERED: CHRONULAC30 ML PO (13:19)
[2016-12-24] MEDS ORDERED: LASIX40 MG PO (13:19)
[2016-12-24] MEDS ORDERED: ZOFRAN4 MG PO (13:20)
[2016-12-24] MEDS ORDERED: FLORAJEN3 CAPS460 MG PO (13:20)
[2016-12-24] MEDS ORDERED: PROTONIX40 MG PO (13:20)
[2016-12-24] MEDS ORDERED: CARDIZEM 90 MG90 MG PO (13:23)
== END 2016-12-24 16:16 | DRG 207 ==
LOC: D.M2 15:13 → D.MS 15:13 → D.ICU 15:13 → D.M2 12-03 15:55 → D.ICU 12-07 15:09 → D.MS 12-21 12:24
PROVIDERS: Family Medicine; General Practice; Internal Medicine Pulmonary Disease; Psychiatry & Neurology Neurology; ADMIT Family Medicine
PROC: 0T9B70Z Drainage of Bladder with Drainage Device, Via Natural or Artificial Opening (ICD-10-PCS; principal; 2016-12-06)
PROC: 5A1955Z Respiratory Ventilation, Greater than 96 Consecutive Hours (ICD-10-PCS; 2016-12-07)
PROC: 5A09357 Assistance with Respiratory Ventilation, Less than 24 Consecutive Hours, Continuous Positive Airway Pressure (ICD-10-PCS; 2016-12-07)
PROC: 0BH17EZ Insertion of Endotracheal Airway into Trachea, Via Natural or Artificial Opening (ICD-10-PCS; 2016-12-07)
PROC: 02HV33Z Insertion of Infusion Device into Superior Vena Cava, Percutaneous Approach (ICD-10-PCS; 2016-12-07)
PROC: B548ZZA Ultrasonography of Superior Vena Cava, Guidance (ICD-10-PCS; 2016-12-07)
PROC: 0GBH3ZX Excision of Right Thyroid Gland Lobe, Percutaneous Approach, Diagnostic (ICD-10-PCS; 2016-12-09)
DX: J96.22 Acute and chronic respiratory failure with hypercapnia (principal); I50.33 Acute on chronic diastolic (congestive) heart failure; G93.40 Encephalopathy, unspecified; J15.6 Pneumonia due to other Gram-negative bacteria; J69.0 Pneumonitis due to inhalation of food and vomit; J13 Pneumonia due to Streptococcus pneumoniae; J44.0 Chronic obstructive pulmonary disease with (acute) lower respiratory infection; J45.901 Unspecified asthma with (acute) exacerbation; J98.11 Atelectasis; J44.1 Chronic obstructive pulmonary disease with (acute) exacerbation; E72.20 Disorder of urea cycle metabolism, unspecified; I11.0 Hypertensive heart disease with heart failure; D64.9 Anemia, unspecified; I08.3 Combined rheumatic disorders of mitral, aortic and tricuspid valves; E11.40 Type 2 diabetes mellitus with diabetic neuropathy, unspecified; I27.2 Other secondary pulmonary hypertension; G47.33 Obstructive sleep apnea (adult) (pediatric); K21.9 Gastro-esophageal reflux disease without esophagitis; E07.9 Disorder of thyroid, unspecified; I48.0 Paroxysmal atrial fibrillation; E87.6 Hypokalemia; J31.0 Chronic rhinitis; Z86.73 Personal history of transient ischemic attack (TIA), and cerebral infarction without residual deficits; E83.42 Hypomagnesemia

== ENCOUNTER 2017-02-26 10:46 | Emergency (ER) | payer MEDICARE, MEDICAID ==
[2016-12-02 14:03] VITALS: BMI 38.4
[~2017-02-26 10:46] MED LIST changes: +CARDIZEM 90 MG90 MG PO; +CATAPRES TTS-20.2 MG TD; +CHRONULAC30 ML PO; +FLORAJEN3 CAPS460 MG PO; +LASIX40 MG PO; +PROTONIX40 MG PO; +ZOFRAN4 MG PO
[2017-02-26 12:36] LABS: BASOPHILS 0.1 % (0-2); EOSINOPHILS 0.5 % (0-7); HEMATOCRIT 39.1 % (36.0-48.0); HEMOGLOBIN 12.5 g/dL (12-16); IMMATURE GRANULOCYTES 0.2 % (0-5); LYMPHOCYTES 11.9 % (15-50); MCH 25.8 pg (26.0-34.0); MCV 80.8 fL (80.0-100.0); MONOCYTES 8.9 % (2-11); NEUTROPHILS 78.4 % (40-80); PLATELET COUNT 225 10x3/uL (130-400); RBC 4.84 10x6/uL (4.00-5.40); RDW 16.8 % (11.5-14.5); WBC 9.6 10x3/uL (4.8-10.8)
[2017-02-26 12:57] LABS: ALBUMIN 3.5 g/dL (3.4-5.0); ALKALINE PHOSPHATASE 62 U/L (46-116); ALT (SGPT) 18 U/L (10-68); BILIRUBIN - TOTAL 0.53 mg/dL (0.2-1.3); CALC OSMOLALITY 271 mosm/kg (275-300); CALCIUM 9.1 mg/dL (8.5-10.1); CARBON DIOXIDE 31.9 mmol/L (21.0-32.0); CHLORIDE - SERUM 98 mmol/L (98-107); CREATININE - SERUM 0.9 mg/dL (0.6-1.3); POTASSIUM - SERUM 4.2 mmol/L (3.5-5.1); PROTEIN - SERUM 7.4 g/dL (6.4-8.2); SODIUM 136 mmol/L (136-145); UREA NITROGEN 18 mg/dL (7-18); eGFR NON AFRICAN AMERICAN 64 mL/min (90-120)
[2017-02-26 12:59] LABS: GLUCOSE 57 mg/dL (74-106)
[2017-02-26 13:05] LABS: CKMB 2.1 U/L (0.0-3.6); CREATINE KINASE 99 UL (21-215); TROPONIN-I 0.014 ng/mL (0.000-0.060)
== END 2017-02-26 15:08 | disposition home or self-care (01) ==
LOC: D.ER 10:46
PROVIDERS: Family Medicine
DX: E11.649 Type 2 diabetes mellitus with hypoglycemia without coma (principal); R41.82 Altered mental status, unspecified; S05.00XA Injury of conjunctiva and corneal abrasion without foreign body, unspecified eye, initial encounter; I44.7 Left bundle-branch block, unspecified; I48.91 Unspecified atrial fibrillation; R94.31 Abnormal electrocardiogram [ECG] [EKG]

== ENCOUNTER → 2017-03-24 18:48 | Outpatient (CLI) | payer MEDICARE, MEDICAID ==
[2016-12-02 14:03] VITALS: BMI 38.4
== END | disposition home or self-care (01) ==
LOC: D.LABREF 18:48
DX: R60.0 Localized edema (principal)

== ENCOUNTER → 2017-04-01 18:55 | Outpatient (CLI) | payer MEDICARE, MEDICAID ==
[2016-12-02 14:03] VITALS: BMI 38.4
== END | disposition home or self-care (01) ==
LOC: D.LABREF 18:55
DX: I50.9 Heart failure, unspecified (principal)

== ENCOUNTER 2017-06-28 18:14 | Inpatient (IN) | payer MEDICARE, MEDICAID ==
[2016-12-02 14:03] VITALS: BMI 38.4
[2017-06-28 19:09] LABS: BASOPHILS 0.2 % (0-2); EOSINOPHILS 0.6 % (0-7); HEMATOCRIT 37.4 % (36.0-48.0); HEMOGLOBIN 11.5 g/dL (12-16); IMMATURE GRANULOCYTES 0.5 % (0-5); LYMPHOCYTES 21.4 % (15-50); MCH 23.6 pg (26.0-34.0); MCHC 30.7 g/dL (31.0-37.0); MCV 76.8 fL (80.0-100.0); MONOCYTES 16.6 % (2-11); NEUTROPHILS 60.7 % (40-80); RBC 4.87 10x6/uL (4.00-5.40); RDW 17.7 % (11.5-14.5); WBC 6.3 10x3/uL (4.8-10.8)
[2017-06-28 19:11] LABS: PLATELET COUNT 128 10x3/uL (130-400)
[2017-06-28 19:17] LABS: APTT 21.8 SECONDS (22.8-39.4); INR 1.39 (0.85-1.17)
[2017-06-28 19:39] LABS: APPEARANCE HAZY (CLEAR); COLOR YELLOW (YELLOW); SPECIFIC GRAVITY 1.025 (1.005-1.020)
[2017-06-28 19:40] LABS: BILIRUBIN NEGATIVE (NEGATIVE); GLUCOSE NEGATIVE (NEGATIVE); KETONE NEGATIVE (NEGATIVE); NITRITE NEGATIVE (NEGATIVE); PROTEIN 1+ mg/dL (NEGATIVE); UROBILINOGEN NORMAL (NORMAL)
[2017-06-28 19:41] LABS: BACTERIA MANY /hpf (NONE SEEN); EPITHELIAL CELLS 0-5 /hpf (0-5); RED CELLS - URINE 25-50 /hpf (0-5)
[2017-06-28 19:51] LABS: ALBUMIN 3.5 g/dL (3.4-5.0); ALKALINE PHOSPHATASE 49 U/L (46-116); ALT (SGPT) 40 U/L (10-68); CALC OSMOLALITY 291 mosm/kg (275-300); CALCIUM 8.8 mg/dL (8.5-10.1); CARBON DIOXIDE 29.6 mmol/L (21.0-32.0); CHLORIDE - SERUM 105 mmol/L (98-107); CKMB 0.8 U/L (0.0-3.6); CREATINE KINASE 55 UL (21-215); CREATININE - SERUM 3.1 mg/dL (0.6-1.3); GLUCOSE 75 mg/dL (74-106); PROTEIN - SERUM 6.9 g/dL (6.4-8.2); SODIUM 140 mmol/L (136-145); UREA NITROGEN 51 mg/dL (7-18); eGFR NON AFRICAN AMERICAN 15 mL/min (90-120)
[2017-06-28 19:53] LABS: PRO BNP 89002 pg/mL (0-450)
[2017-06-28 19:56] LABS: POTASSIUM - SERUM 6.4 mmol/L (3.5-5.1); TROPONIN-I 0.075 ng/mL (0.000-0.060)
== END 2017-06-29 18:38 | disposition hospice, inpatient (51) | DRG 291 ==
LOC: D.ER 18:14 → D.CVICU 21:03 → D.ICU 21:03
PROVIDERS: Family Medicine; ADMIT Family Medicine
DX: I11.0 Hypertensive heart disease with heart failure (principal); J18.9 Pneumonia, unspecified organism; J96.00 Acute respiratory failure, unspecified whether with hypoxia or hypercapnia; G93.41 Metabolic encephalopathy; N19 Unspecified kidney failure; I48.2 Chronic atrial fibrillation; I50.9 Heart failure, unspecified; E11.40 Type 2 diabetes mellitus with diabetic neuropathy, unspecified; Z86.73 Personal history of transient ischemic attack (TIA), and cerebral infarction without residual deficits; R22.1 Localized swelling, mass and lump, neck

== ENCOUNTER 2017-06-29 15:23 | Inpatient (IN) | payer OTHER ==
[~2017-06-29] VITALS: Ht 170.2 cm; Wt 102.3 kg
--- NOTE | 2017-06-29 19:30 | NUR ---
PT REC'D TO ROOM 2236 VIA STRETCHER. FAMILY AT BEDSIDE. HOSPICE PT WITH CAREY. PT IS ASLEEP, AROUSAL TO SPEECH. FAMILY STATED THAT THEY HAVE BEEN IN THE ER FOR OVER 24 HOURS. IV LEFT HAND PATENT SL. 02 @ 4L CA. GLADYS TO BEDSIDE. CALL LIGHT IN REACH, WILL CONTINUE TO MONITOR.
[2017-06-30 00:31] VITALS: BP 115/63; Ht 170.2 cm; Wt 102.3 kg
--- NOTE | 2017-06-30 06:30 | NUR ---
REPORT RECEIVED, ASSUMED CARE OF PT. AWAKE, RESTLESS, GARBLED SPEECH, HOSPICE PT. L HAND IV SALINE LOCKED, DRSG C/D/I. GRAHAM CATHETER IN PLACE, PATENT, DRAINING, SECURED TO LEG WITH STAT-LOCK. O2 VIA NASAL CANNULA AT 4L. BED IN LOWEST POSITION, SIDE RAILS UP X 2, CALL LIGHT WITHIN REACH.
--- NOTE | 2017-06-30 10:09 | NUR ---
FAMILY REQUEST GLUCOSE CHECK, FSBS 98.
--- NOTE | 2017-07-01 03:40 | NUR ---
ASSESSED AT THE BEGINNING OF THE SHIFT. PT IS LETHARGIC AND WILL OPEN HER EYES WHEN TALKED WITH BUT THEN DRIFTS BACK OFF. SHE WAS GIVEN PAIN MEDS ONCE WHEN SHE ACTED IF WE WERE HURTING HER WHEN WE TURNED HER. WE HAVE BEEN TURNING HER PER PROTOCOL, THERE IS A GRAHAM CATH IN PLACE. SHE HAS O2 AT 4 LITERS AND A SMALL SKIN TEAR TO HER RT LOWER LEG. THE BED IS LOW, RAILS UP X'S 2 WITH THE CALL LIGHT AT HAND.
--- NOTE | 2017-07-01 07:07 | NUR ---
REPORT RECEIVED, ASSUMED CARE OF PT. NON-VERBAL, DOES NOT RESPOND TO VOICE, HOSPICE PT. L HAND IV SALINE LOCKED, DRSG C/D/I. GRAHAM CATHETER SECURED TO LEG, PATENT WITH MINIMAL URINARY OUTPUT. BED IN LOWEST POSITION, SIDE RAILS UP X 2, CALL LIGHT WITHIN REACH.
--- NOTE | 2017-07-01 10:22 | NUR ---
ENTERED ROOM, PT WITHOUT RESPIRATIONS OR PULSE. FMAILY AT BEDSIDE. HOSPICE CONTACTED
--- NOTE | 2017-07-01 11:00 | NUR ---
HOSPICE ARRIVED TO FLOOR
--- NOTE | 2017-07-01 12:53 | NUR ---
[facility] ARRIVED TO TRANSPORT BODY
--- NOTE | 2017-07-01 12:58 | NUR ---
BODY LEFT FACILITY WITH HOME
== END 2017-07-01 10:20 | DRG 951 ==
LOC: D.ICU 15:23 → D.MS 18:02
PROVIDERS: ADMIT Legal Medicine
DX: Z51.5 Encounter for palliative care (principal)